=== PATIENT | male | born 1955 | race Caucasian/White ===

== ENCOUNTER → 2016-09-03 | Outpatient (CLI) | payer BC | LOC: FLAB 09:29 | PROVIDERS: ATTEND Radiology Diagnostic Radiology | DX: Z98.1 Arthrodesis status (principal); M54.16 Radiculopathy, lumbar region ==

== ENCOUNTER → 2017-03-07 | Outpatient (CLI) | payer BC | LOC: FIMAGING 10:41 | PROVIDERS: ATTEND Physician Assistant | DX: Z09 Encounter for follow-up examination after completed treatment for conditions other than malignant neoplasm (principal); Z98.1 Arthrodesis status ==